=== PATIENT | male | born 2000 | race Caucasian/White ===

== ENCOUNTER 2023-05-12 17:04 | Emergency (ER) | payer BC ==
[~2023-05-12] VITALS: Ht 172.7 cm; Wt 74.8 kg
[2023-05-12 17:10] VITALS: BP 129/73; TEMP 98.2; O2SAT 98
[2023-05-12] MEDS ORDERED: TDAP [DIPH/PERTUSSIS/TET] 0.5 ML VIAL IM ONE (17:24)
[2023-05-12] MEDS: TDAP [DIPH/PERTUSSIS/TET] 0.5 ML VIAL IM ONE (17:27)
== END 2023-05-12 17:41 | disposition home or self-care (01) ==
LOC: ER 17:04
DX: S91.332A Puncture wound without foreign body, left foot, initial encounter (principal); W22.8XXA Striking against or struck by other objects, initial encounter; Y93.89 Activity, other specified; Y92.89 Other specified places as the place of occurrence of the external cause; Y99.8 Other external cause status
CPT/HCPCS: 90715